=== PATIENT | male | born 1990 | race Caucasian/White ===

== ENCOUNTER 2018-11-23 02:54 | Emergency (ER) | payer SELFPAY ==
[2018-11-23] MEDS ORDERED: Diphtheria,Pertussis(Acell),Tetanus Vaccine 0.5 ML Syringe IM ONE (02:56)
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
[2018-11-23] MEDS ORDERED: Bacitracin Oint 1 GM U/D Packet TOP ONE (03:10)
[2018-11-23] MEDS ORDERED: Haloperidol Lactate 5 MG/ML SDV IM ONE (03:24)
[2018-11-23] MEDS ORDERED: Sodium Chloride 0.9% 10 ML Syringe FLUSH PRN (03:26)
[2018-11-23] MEDS ORDERED: LORazepam 2 MG/ML SDV IVPUSH ONE (03:26)
[2018-11-23] MEDS ORDERED: Sodium Chloride 0.9% 2.5 ML Syringe FLUSH PRN (03:26)
[2018-11-23] MEDS ORDERED: Sodium Chloride 0.9% 1,000 ML IV ONE (03:27)
[2018-11-23] MEDS ORDERED: LORazepam 2 MG/ML SDV ONE ×2 (03:29→03:38)
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
== END 2018-11-23 04:03 ==
LOC: MW.ED 02:54
DX: S01.01XA Laceration without foreign body of scalp, initial encounter (principal); S01.511A Laceration without foreign body of lip, initial encounter; S30.810A Abrasion of lower back and pelvis, initial encounter; F10.129 Alcohol abuse with intoxication, unspecified; Z23 Encounter for immunization; W01.198A Fall on same level from slipping, tripping and stumbling with subsequent striking against other object, initial encounter
CPT/HCPCS: 12001; 70450; 82962; 90471; 90715; 96374; 99284; J2060; J7040

== ENCOUNTER 2020-03-18 12:26 | Emergency (ER) | payer SELFPAY ==
[2020-03-18] MEDS ORDERED: Sodium Chloride 0.9% 2.5 ML Syringe FLUSH PRN ×2 (13:08→13:13)
[2020-03-18] MEDS ORDERED: Sodium Chloride 0.9% 10 ML Syringe FLUSH PRN ×2 (13:08→13:13)
--- NOTE | 2020-03-18 13:08 | EDM.PDOC ---
ED HPI GENERAL MEDICAL PROBLEM - General Chief Complaint: Abdominal Pain Stated Complaint: ABDOMINAL PAIN Time Seen by Provider: 03/18/20 13:07 Source of Information: Reports: Patient History Limitations: Reports: No Limitations - History of Present Illness INITIAL COMMENTS - FREE TEXT/NARRATIVE: 29-year-old male presents with lower abdominal pain since last night. Pain is sharp, moderate, localized to the lower abdomen, constant, no alleviating or exacerbating factors. Associated with decreased appetite, subjective fevers, chills, nausea, vomiting, diarrhea, melanotic stool. He denies testicular pain or back pain. Last time he ate was at 8 PM. ROS: A 10-point review of systems, other than pertinent positives and negatives as stated per HPI, is otherwise negative Past medical history: No additional pertinent history Past Surgical history: No additional pertinent history Social history: No additional pertinent history Family history: No additional pertinent history PHYSICAL EXAM General: AOx4, GCS = 15, moderate distress HEENT: dry mucous membrane Neck: supple, no meningismus, no Kernig or Brudzinski Cardiac: S1S2 RRR Respiratory: CTAB, no crackles or rales, no wheezing Abdomen: Soft, tenderness to right lower quadrant, left lower quadrant, suprapubic, periumbilical. No rebound or guarding, nondistended, no pulsatile mass. Back: nontender Musculoskeletal: NVI distally, no deformity Neuro: No focal deficits, CN 2 - 12 WNL. abdomen Pain Score (Numeric/FACES): 8 - Related Data Allergies Allergy/AdvReac Type Severity Reaction Status Date / Time No Known Allergies Allergy Verified 03/18/20 14:08 Home Meds: Home Meds Dicyclomine [Bentyl] 10 mg PO QIDACANDBED #12 cap 03/18/20 [Rx] Past Medical History - Past Health History Medical/Surgical History: Denies Medical/Surgical History Social & Family History - Family History Family Medical History: Noncontributory ED ROS GENERAL - Review of Systems Review Of Systems: See Below (see dictation) ED EXAM, GI/ABD - Physical Exam Exam: See Below (see dictation) Course - Vital Signs Last Recorded V/S: Last Vital Signs Temp 97.5 F 03/18/20 13:14 Pulse 105 H 03/18/20 17:25 Resp 17 03/18/20 17:25 BP 171/107 H 03/18/20 17:25 Pulse Ox 94 L 03/18/20 17:25 - Orders/Labs/Meds Orders: Active Orders 24 hr Category Date Time Status Sodium Chloride 0.9% [Saline Flush] Med 03/18/20 13:08 Active 10 ml FLUSH ASDIRECTED PRN Sodium Chloride 0.9% [Saline Flush] Med 03/18/20 13:13 Active 10 ml FLUSH ASDIRECTED PRN Sodium Chloride 0.9% [Saline Flush] Med 03/18/20 13:08 Active 2.5 ml FLUSH ASDIRECTED PRN Sodium Chloride 0.9% [Saline Flush] Med 03/18/20 13:13 Active 2.5 ml FLUSH ASDIRECTED PRN Saline Lock Insert [OM.PC] Stat Oth 03/18/20 13:08 Ordered Saline Lock Insert [OM.PC] Stat Oth 03/18/20 13:13 Ordered Medication Orders Sodium Chloride (Saline Flush) 10 ml FLUSH ASDIRECTED PRN PRN Reason: Keep Vein Open Last Admin: 03/18/20 13:41 Dose: 10 ml Documented by: SALVADOR Sodium Chloride (Saline Flush) 2.5 ml FLUSH ASDIRECTED PRN PRN Reason: Keep Vein Open Last Admin: 03/18/20 13:42 Dose: 2.5 ml Documented by: JOSEPHG Sodium Chloride (Saline Flush) 10 ml FLUSH ASDIRECTED PRN PRN Reason: Keep Vein Open Last Admin: 03/18/20 13:42 Dose: 10 ml Documented by: ARANANG Sodium Chloride (Saline Flush) 2.5 ml FLUSH ASDIRECTED PRN PRN Reason: Keep Vein Open Labs: Laboratory Tests 03/18/20 03/18/20 03/18/20 Range/Units 13:30 13:30 13:30 WBC 10.60 (4.0-11.0) K/uL RBC 5.38 (4.50-5.90) M/uL Hgb 16.9 (13.0-17.0) g/dL Hct 50.3 H (38.0-50.0) % MCV 93.5 (80.0-98.0) fL MCH 31.4 (27.0-32.0) pg MCHC 33.6 (31.0-37.0) g/dL RDW Std Deviation 46.5 (28.0-62.0) fl RDW Coeff of Julissa 14 (11.0-15.0) % Plt Count 154 (150-400) K/uL MPV 13.00 H (7.40-12.00) fL Neut % (Auto) 67.3 (48.0-80.0) % Lymph % (Auto) 19.7 (16.0-40.0) % [place] % (Auto) 10.4 (0.0-15.0) % Eos % (Auto) 2.2 (0.0-7.0) % Baso % (Auto) 0.4 (0.0-1.5) % Neut # (Auto) 7.1 H (1.4-5.7) K/uL Lymph # (Auto) 2.1 (0.6-2.4) K/uL [place] # (Auto) 1.1 H (0.0-0.8) K/uL Eos # (Auto) 0.2 (0.0-0.7) K/uL Baso # (Auto) 0.0 (0.0-0.1) K/uL Nucleated RBC % 0.0 /100WBC Nucleated RBCs # 0 K/uL INR 1.09 Lactate (0.20-2.00) mmol/L Sodium 141 (136-148) mmol/L Potassium 3.5 (3.5-5.1) mmol/L Chloride 104 (98-107) mmol/L Carbon Dioxide 25.1 (21.0-32.0) mmol/L BUN 9 (7.0-18.0) mg/dL Creatinine 0.8 (0.8-1.3) mg/dL Est Cr Clr Drug Dosing 151.20 mL/min Estimated GFR (MDRD) > 60.0 ml/min Glucose 108 H (74-106) mg/dL Calcium 8.8 (8.5-10.1) mg/dL Total Bilirubin 0.8 (0.2-1.0) mg/dL AST 36 (15-37) IU/L ALT 98 H (14-63) IU/L Alkaline Phosphatase 78 (46-116) U/L Total Protein 7.6 (6.4-8.2) g/dL Albumin 4.2 (3.4-5.0) g/dL Globulin 3.4 (2.6-4.0) g/dL Albumin/Globulin Ratio 1.2 (0.9-1.6) Lipase 132 (73-393) U/L Urine Color Urine Appearance Urine pH (5.0-8.0) Ur Specific Woodman (1.001-1.035) Urine Protein (NEGATIVE) mg/dL Urine Glucose (UA) (NEGATIVE) mg/dL Urine Ketones (NEGATIVE) mg/dL Urine Occult Blood (NEGATIVE) Urine Nitrite (NEGATIVE) Urine Bilirubin (NEGATIVE) Urine Ictotest Urine Urobilinogen (<2.0) EU/dL Ur Leukocyte Esterase (NEGATIVE) Urine RBC (0-2/HPF) Urine WBC (0-5/HPF) Ur Epithelial Cells (NONE-FEW) Urine Bacteria (NEGATIVE) 03/18/20 03/18/20 Range/Units 13:30 13:35 WBC (4.0-11.0) K/uL RBC (4.50-5.90) M/uL Hgb (13.0-17.0) g/dL Hct (38.0-50.0) % MCV (80.0-98.0) fL MCH (27.0-32.0) pg MCHC (31.0-37.0) g/dL RDW Std Deviation (28.0-62.0) fl RDW Coeff of Julissa (11.0-15.0) % Plt Count (150-400) K/uL MPV (7.40-12.00) fL Neut % (Auto) (48.0-80.0) % Lymph % (Auto) (16.0-40.0) % [place] % (Auto) (0.0-15.0) % Eos % (Auto) (0.0-7.0) % Baso % (Auto) (0.0-1.5) % Neut # (Auto) (1.4-5.7) K/uL Lymph # (Auto) (0.6-2.4) K/uL [place] # (Auto) (0.0-0.8) K/uL Eos # (Auto) (0.0-0.7) K/uL Baso # (Auto) (0.0-0.1) K/uL Nucleated RBC % /100WBC Nucleated RBCs # K/uL INR Lactate 1.0 (0.20-2.00) mmol/L Sodium (136-148) mmol/L Potassium (3.5-5.1) mmol/L Chloride (98-107) mmol/L Carbon Dioxide (21.0-32.0) mmol/L BUN (7.0-18.0) mg/dL Creatinine (0.8-1.3) mg/dL Est Cr Clr Drug Dosing mL/min Estimated GFR (MDRD) ml/min Glucose (74-106) mg/dL Calcium (8.5-10.1) mg/dL Total Bilirubin (0.2-1.0) mg/dL AST (15-37) IU/L ALT (14-63) IU/L Alkaline Phosphatase (46-116) U/L Total Protein (6.4-8.2) g/dL Albumin (3.4-5.0) g/dL Globulin (2.6-4.0) g/dL Albumin/Globulin Ratio (0.9-1.6) Lipase (73-393) U/L Urine Color YELLOW Urine Appearance SLT CLOUDY Urine pH 6.0 (5.0-8.0) Ur Specific [place]man >= 1.030 (1.001-1.035) Urine Protein TRACE H (NEGATIVE) mg/dL Urine Glucose (UA) NEGATIVE (NEGATIVE) mg/dL Urine Ketones 15 H (NEGATIVE) mg/dL Urine Occult Blood MODERATE H (NEGATIVE) Urine Nitrite NEGATIVE (NEGATIVE) Urine Bilirubin SMALL H (NEGATIVE) Urine Ictotest NEGATIVE Urine Urobilinogen 1.0 (<2.0) EU/dL Ur Leukocyte Esterase TRACE H (NEGATIVE) Urine RBC 1-2 (0-2/HPF) Urine WBC 2-3 (0-5/HPF) Ur Epithelial Cells RARE (NONE-FEW) Urine Bacteria RARE (NEGATIVE) Meds: Medications Generic Name Dose Route Start Last Admin Trade Name Freq PRN Reason Stop Dose Admin Sodium Chloride 10 ml 03/18/20 13:08 03/18/20 13:41 Saline Flush FLUSH 10 ml ASDIRECTED PRN Administration Keep Vein Open Sodium Chloride 2.5 ml 03/18/20 13:08 03/18/20 13:42 Saline Flush FLUSH 2.5 ml ASDIRECTED PRN Administration Keep Vein Open Sodium Chloride 10 ml 03/18/20 13:13 03/18/20 13:42 Saline Flush FLUSH 10 ml ASDIRECTED PRN Administration Keep Vein Open Sodium Chloride 2.5 ml 03/18/20 13:13 Saline Flush FLUSH ASDIRECTED PRN Keep Vein Open Discontinued Medications Generic Name Dose Route Start Last Admin Trade Name Mario PRN Reason Stop Dose Admin Dicyclomine HCl 10 mg 03/18/20 16:24 03/18/20 16:36 Bentyl PO 03/18/20 16:25 10 mg ONETIME ONE Administration Hydromorphone HCl 1 mg 03/18/20 16:24 03/18/20 16:34 Dilaudid IVPUSH 03/18/20 16:25 1 mg ONETIME ONE Administration Lactated Ringer's 1,000 mls @ 999 mls/hr 03/18/20 13:13 03/18/20 13:37 Ringers, Lactated IV 03/18/20 14:13 999 mls/hr .BOLUS ONE Administration Iopamidol 100 ml 03/18/20 14:45 03/18/20 14:46 Isovue Multipack-370 (76%) IVPUSH 03/18/20 14:46 100 ml ONETIME ONE Administration Labetalol HCl 10 mg 03/18/20 16:41 03/18/20 17:25 Normodyne IVPUSH 03/18/20 16:42 10 mg ONETIME ONE Administration Protocol Morphine Sulfate 4 mg 03/18/20 13:13 03/18/20 13:39 Morphine IVPUSH 03/18/20 13:14 4 mg ONETIME ONE Administration Ondansetron HCl 4 mg 03/18/20 13:13 03/18/20 13:37 Zofran IVPUSH 03/18/20 13:14 4 mg ONETIME ONE Administration - Re-Assessments/Exams Free Text/Narrative Re-Assessment/Exam: 03/18/20 18:15 After IV pain medication in the ER, the patient improved and is currently stable for discharge. I performed a repeat exam and did not appreciate new abnormal findings. Patient exhibits normal vital signs and has a normal gait on road test. I advised the patient to return to the ER for reevaluation if symptoms worsened, including fever, worsening pain, or any other worrisome symptoms. I instructed the patient to follow up with their PCP within 2-3 days. MEDICAL DECISION MAKING: I reviewed the patients past medical records, lab and radiographic findings. I discussed the case with the patient. My differential diagnosis included: Appendicitis, diverticulitis, UTI, cystitis. CT did not demonstrate any surgical abnormality, pain is improved after IV pain medication, his blood pressure and tachycardia resolved after IV fluids and medication. I reexamined his abdomen, which was soft and nontender with no rebound or guarding, I do not suspect need for admission for serial exams, I suspect he is stable for outpatient follow-up with surgery clinic for scoping. Departure - Departure Time of Disposition: 18:17 Disposition: Home, Self-Care 01 Condition: Good Clinical Impression: Abdominal pain - Discharge Information *PRESCRIPTION DRUG MONITORING PROGRAM REVIEWED*: Not Applicable *COPY OF PRESCRIPTION DRUG MONITORING REPORT IN PATIENT STACY: Not Applicable Prescriptions: Dicyclomine [Bentyl] 10 mg PO QIDACANDBED #12 cap Instructions: Abdominal Pain, Adult, [id number] Referrals: Jenna Almendraez MD [Physician] - 3 Days Forms: ED Department Discharge, ED Return to Work/School Form Additional Instructions: The need for follow-up, as well as the timing and circumstances, are variable depending upon the specifics of your emergency department visit. If you don't have a primary care physician on staff, we will provide you with a referral. We always advise you to contact your personal physician following an emergency department visit to inform them of the circumstance of the visit and for follow-up with them and/or the need for any referrals to a consulting specialist. The emergency department will also refer you to a specialist when appropriate. This referral assures that you have the opportunity for follow-up care with a specialist. All of these measure are taken in an effort to provide you with optimal care, which includes your follow-up. Under all circumstances we always encourage you to contact your private physician who remains a resource for coordinating your care. When calling for follow-up care, please make the office aware that this follow-up is from your recent emergency room visit. If for any reason you are refused follow-up, please contact the [facility] Emergency Department at and asked to speak to the emergency department charge nurse. If you do not have a primary care doctor, please follow up with the clinics below within 3-5 days. [facility] - Primary Care [address] [place] [id number] [facility] - General Surgery Professional Building [address] [place] [address], [address] [place] [address] Sepsis Event Note (ED) - Focused Exam Vital Signs: Vital Signs Temp Pulse Resp BP Pulse Ox 03/18/20 17:25 105 H 17 171/107 H 94 L 03/18/20 16:30 120 H 17 167/118 H 96 03/18/20 13:45 114 H 17 164/104 H 95 03/18/20 13:14 97.5 F 107 H 20 170/108 H 97 - My Orders Last 24 Hours: My Active Orders 03/18/20 13:08 Sodium Chloride 0.9% [Saline Flush] 10 ml FLUSH ASDIRECTED PRN Sodium Chloride 0.9% [Saline Flush] 2.5 ml FLUSH ASDIRECTED PRN Saline Lock Insert [OM.PC] Stat 03/18/20 13:13 Sodium Chloride 0.9% [Saline Flush] 10 ml FLUSH ASDIRECTED PRN Sodium Chloride 0.9% [Saline Flush] 2.5 ml FLUSH ASDIRECTED PRN Saline Lock Insert [OM.PC] Stat - Assessment/Plan Last 24 Hours: My Active Orders 03/18/20 13:08 Sodium Chloride 0.9% [Saline Flush] 10 ml FLUSH ASDIRECTED PRN Sodium Chloride 0.9% [Saline Flush] 2.5 ml FLUSH ASDIRECTED PRN Saline Lock Insert [OM.PC] Stat 03/18/20 13:13 Sodium Chloride 0.9% [Saline Flush] 10 ml FLUSH ASDIRECTED PRN Sodium Chloride 0.9% [Saline Flush] 2.5 ml FLUSH ASDIRECTED PRN Saline Lock Insert [OM.PC] Stat
[2020-03-18] MEDS ORDERED: Morphine 4 MG/ML Syringe IVPUSH ONE (13:13)
[2020-03-18] MEDS ORDERED: Lactated Ringers 1,000 ML IV ONE (13:13)
[2020-03-18] MEDS ORDERED: Ondansetron 4 MG/2 ML SDV IVPUSH ONE (13:13)
[2020-03-18 14:01] LABS: CARBON DIOXIDE,CO2 25.1 mmol/L (21.0-32.0); CHLORIDE,CL 104 mmol/L (98-107); GLUCOSE RANDOM 108 mg/dL (74-106); LIPASE 132 U/L (73-393); POTASSIUM,K 3.5 mmol/L (3.5-5.1); SODIUM,NA 141 mmol/L (136-148)
[2020-03-18 14:06] LABS: BLOOD UREA NITROGEN,BUN 9 mg/dL (7.0-18.0)
[2020-03-18] MEDS ORDERED: Iopamidol 755 MG/ML 500 ML Multipack Bottle IVPUSH ONE (14:45)
--- NOTE | 2020-03-18 15:04 | CT ---
CT abdomen and pelvis Technique: Multiple axial sections were obtained from above the dome of the diaphragm inferiorly through the pubic symphysis. Intravenous contrast was utilized. No oral contrast has been given. Comparison: No prior abdominal imaging is available. Findings: Visualized lung bases are clear. Liver shows no focal parenchymal abnormality. Spleen appears within normal limits. Gallbladder contains no calcified gallstones. Adrenal glands show no nodule. Kidneys show symmetric contrast enhancement without hydronephrosis or mass. Pancreas appears within normal limits. Aorta shows no aneurysm. No retroperitoneal adenopathy or mesenteric abnormalities are seen. No pelvic mass or adenopathy is seen. No free fluid or inflammatory change is identified. Appendix is visualized and appears normal. Bone window settings were reviewed which shows an old healed right lower rib fracture. No acute osseous finding is appreciated. Impression: 1. Nothing acute is appreciated on CT study of the abdomen and pelvis. Diagnostic code #2 This report was dictated in MDT
[2020-03-18] MEDS ORDERED: Dicyclomine 10 MG Cap PO ONE (16:24)
[2020-03-18] MEDS ORDERED: HYDROmorphone 2 MG/ML Syringe IVPUSH ONE (16:24)
[2020-03-18] MEDS ORDERED: Labetalol 100 MG/20 ML MDV IVPUSH ONE (16:41)
== END 2020-03-18 18:46 | disposition home or self-care (01) ==
LOC: MW.ED 12:26
DX: R10.31 Right lower quadrant pain (principal); R10.32 Left lower quadrant pain; R10.33 Periumbilical pain
CPT/HCPCS: 74177; 80053; 81001; 83605; 83690; 85025; 85610; 96361; 96374; 96375; 99284; A9270; J1170; J2270; J2405; J3490; J7120; Q9967; 99283

== ENCOUNTER 2020-11-01 22:25 | Emergency (ER) | payer MEDICAID ==
--- NOTE | 2020-11-01 22:49 | EDM.PDOC ---
ED HPI GENERAL MEDICAL PROBLEM - General Chief Complaint: Behavioral/Psych Stated Complaint: DEPRESSION NOT SLEEPING Time Seen by Provider: 11/01/20 22:29 - History of Present Illness INITIAL COMMENTS - FREE TEXT/NARRATIVE: History of present illness: [] The patient is depressed. He says he is depressed and anxious and sometimes he thinks he is fairly close to trying to kill himself. 7 years ago he tried to hang himself and was unsuccessful. He did put a noose around his neck but it did not kill him. He has had no effort since. He occasionally has hallucinations. He says he has been depressed all his life. He recently got out of a relationship but he said it did not get off to have very good start and never became a very close relationship. His only contact with supportive person is his mother by phone who does not live here. He says his mother is supportive and not judgmental. He does get some consolation when he talks to her. He does not have a plan to kill himself but says if he cannot sleep he feels like he might want to . He thinks it is possible he might try again. He wants to get help sleeping and then he agrees to go to [place] and be seen and evaluated for intake and possible referral for voluntary inpatient, group, or individual counseling. He does not have any physical complaint but worries about his health because he says he drinks too much. Review of systems: As per history of present illness and below otherwise all systems reviewed and negative. Past medical history: As per history of present illness and as reviewed below otherwise noncontributory. Surgical history: As per history of present illness and as reviewed below otherwise noncontributory. Social history: No reported history of drug or alcohol abuse. Family history: As per history of present illness and as reviewed below otherwise noncontributory. Physical exam: Constitutional - well developed, well-nourished and in no acute distress HEENT - normocephalic, no evidence of trauma - external nose and mouth normal - no mass in neck and no JVD - mucosae moist EYES - full EOM, PERRL, no icterus - no evidence of inflammation, injection, or drainage Respiratory - no respiratory distress, equal bilateral expansion, lungs clear to auscultation and no abnormal lung sounds Cardiovascular - Regular Rhythm with S1 and S2 appreciated and no murmur, gallop or rub. GI - abdomen soft without distension or organomegaly - normal bowel sounds - no guard or rebound Musculoskeletal no gross deformity of long bones or joints - no tenderness, swelling or edema Neurologic - Alert and oriented times four - CN II-XII grossly intact - motor sensory and coordination symmetrically normal Psychiatric -depressed mood and normal affect with normal thought content. No plan to kill himself. No concern that he is going to try to kill himself today. He states that he poses no threat to others. Hematologic - No petechiae or purpura - mucosa appropriate color and sclera not pale - normal nail bed color and refill Integument - no rash or evidence of trauma - normal turgor Diagnostics: [] Therapeutics: [] Impression: [] Plan: [] Definitive disposition and diagnosis as appropriate pending reevaluation and review of above. - Related Data Allergies Allergy/AdvReac Type Severity Reaction Status Date / Time No Known Allergies Allergy Verified 11/01/20 22:33 Home Meds: Home Meds Dicyclomine [Bentyl] 10 mg PO QIDACANDBED #12 cap 03/18/20 [Rx] Past Medical History - Past Health History Medical/Surgical History: Denies Medical/Surgical History HEENT History: Reports: None Cardiovascular History: Reports: None Respiratory History: Reports: None Gastrointestinal History: Reports: None, Other (See Below) Other Gastrointestinal History: diverticulitis Genitourinary History: Reports: None Musculoskeletal History: Reports: None Neurological History: Reports: None Psychiatric History: Reports: Anxiety, Depression Endocrine/Metabolic History: Reports: None Hematologic History: Reports: None Immunologic History: Reports: None Oncologic (Cancer) History: Reports: None Dermatologic History: Reports: None - Infectious Disease History Infectious Disease History: Reports: None - Past Surgical History Head Surgeries/Procedures: Reports: None HEENT Surgical History: Reports: None GI Surgical History: Reports: Colonoscopy Social & Family History - Family History Family Medical History: No Pertinent Family History - Caffeine Use Caffeine Use: Reports: Energy Drinks, Soda - Recreational Drug Use Recreational Drug Use: Yes Drug Use in Last 12 Months: Yes Recreational Drug Type: Reports: Amphetamines (Speed) ED ROS GENERAL - Review of Systems Review Of Systems: Comprehensive ROS is negative, except as noted in HPI. ED EXAM, GENERAL - Physical Exam Exam: See Below Free Text/Narrative:: My physical exam is in the HPI. Course - Vital Signs Text/Narrative:: Patient said he decided to go to [place] on his own. He was in a kill himself. He walked out without getting his lab results. He was steady on his feet and understood the risk he is taking and had the capacity to understand that we wanted him to stay and get his lab results and have us discuss more formal referral. Last Recorded V/S: Last Vital Signs Temp 36.4 C 11/01/20 22:34 Pulse 109 H 11/01/20 22:34 Resp 18 11/01/20 22:34 BP 121/70 11/01/20 22:34 Pulse Ox 96 11/01/20 22:34 - Orders/Labs/Meds Orders: Active Orders 24 hr Category Date Time Status COMPREHENSIVE METABOLIC PN,CMP [CHEM] Stat Lab 11/01/20 23:03 Received DRUG SCREEN, URINE [URCHEM] Stat Lab 11/01/20 22:46 Ordered ETHANOL BLOOD MEDICAL [CHEM] Stat Lab 11/01/20 23:03 Received LIPASE [CHEM] Stat Lab 11/01/20 23:03 Received MAGNESIUM [CHEM] Stat Lab 11/01/20 23:03 Received Labs: Laboratory Tests 11/01/20 Range/Units 23:03 WBC 11.06 H (4.0-11.0) K/uL RBC 5.89 (4.50-5.90) M/uL Hgb 18.4 H (13.0-17.0) g/dL Hct 53.8 H (38.0-50.0) % MCV 91.3 (80.0-98.0) fL MCH 31.2 (27.0-32.0) pg MCHC 34.2 (31.0-37.0) g/dL RDW Std Deviation 46.7 (28.0-62.0) fl RDW Coeff of Julissa 14 (11.0-15.0) % Plt Count 181 (150-400) K/uL MPV 12.90 H (7.40-12.00) fL Neut % (Auto) 54.8 (48.0-80.0) % Lymph % (Auto) 35.1 (16.0-40.0) % Day % (Auto) 4.9 (0.0-15.0) % Eos % (Auto) 4.5 (0.0-7.0) % Baso % (Auto) 0.7 (0.0-1.5) % Neut # (Auto) 6.1 H (1.4-5.7) K/uL Lymph # (Auto) 3.9 H (0.6-2.4) K/uL Day # (Auto) 0.5 (0.0-0.8) K/uL Eos # (Auto) 0.5 (0.0-0.7) K/uL Baso # (Auto) 0.1 (0.0-0.1) K/uL Nucleated RBC % 0.0 /100WBC Nucleated RBCs # 0 K/uL Departure - Departure Time of Disposition: 23:24 Disposition: Eloped 07 Condition: Good Clinical Impression: Alcohol abuse - Discharge Information Referrals: PCP,None [Primary Care Provider] - Forms: ED Department Discharge Additional Instructions: [facility] Address: [address] [place] [address] Hours: walk in 9 AM M-F The following information is given to patients seen in the emergency department who are being discharged to home. This information is to outline your options for follow-up care. We provide all patients seen in our emergency department with a follow-up referral. The need for follow-up, as well as the timing and circumstances, are variable depending upon the specifics of your emergency department visit. If you don't have a primary care physician on staff, we will provide you with a referral. We always advise you to contact your personal physician following an emergency department visit to inform them of the circumstance of the visit and for follow-up with them and/or the need for any referrals to a consulting specialist. The emergency department will also refer you to a specialist when appropriate. This referral assures that you have the opportunity for follow-up care with a specialist. All of these measure are taken in an effort to provide you with optimal care, which includes your follow-up. Under all circumstances we always encourage you to contact your private physician who remains a resource for coordinating your care. When calling for follow-up care, please make the office aware that this follow-up is from your recent emergency room visit. If for any reason you are refused follow-up, please contact the [facility] Emergency Department at and asked to speak to the emergency department charge nurse. Sepsis Event Note (ED) - Evaluation Sepsis Screening Result: No Definite Risk - Focused Exam Vital Signs: Vital Signs Temp Pulse Resp BP Pulse Ox 11/01/20 22:34 36.4 C 109 H 18 121/70 96 - My Orders Last 24 Hours: My Active Orders 11/01/20 22:46 DRUG SCREEN, URINE [URCHEM] Stat 11/01/20 23:03 COMPREHENSIVE METABOLIC PN,CMP [CHEM] Stat ETHANOL BLOOD MEDICAL [CHEM] Stat LIPASE [CHEM] Stat MAGNESIUM [CHEM] Stat - Assessment/Plan Last 24 Hours: My Active Orders 11/01/20 22:46 DRUG SCREEN, URINE [URCHEM] Stat 11/01/20 23:03 COMPREHENSIVE METABOLIC PN,CMP [CHEM] Stat ETHANOL BLOOD MEDICAL [CHEM] Stat LIPASE [CHEM] Stat MAGNESIUM [CHEM] Stat
[2020-11-01 23:29] LABS: BLOOD UREA NITROGEN,BUN 8 mg/dL (7.0-18.0); CARBON DIOXIDE,CO2 20.7 mmol/L (21.0-32.0); CHLORIDE,CL 104 mmol/L (98-107); GLUCOSE RANDOM 127 mg/dL (74-106); LIPASE 182 U/L (73-393); POTASSIUM,K 3.7 mmol/L (3.5-5.1); SODIUM,NA 142 mmol/L (136-148)
== END 2020-11-01 23:24 | disposition left against medical advice (07) ==
LOC: MW.ED 22:25
DX: F10.10 Alcohol abuse, uncomplicated (principal); Y90.4 Blood alcohol level of 80-99 mg/100 ml
CPT/HCPCS: 36415; 80053; 80307; 83690; 83735; 85025; 99284

== ENCOUNTER 2021-01-13 18:32 | Emergency (ER) | payer MEDICAID ==
[2021-01-13] MEDS ORDERED: Ondansetron 4 MG/2 ML SDV IVPUSH ONE (19:00)
[2021-01-13] MEDS ORDERED: Sodium Chloride 0.9% 1,000 ML IV ONE (19:00)
[2021-01-13] MEDS ORDERED: Ketorolac 30 MG/ML SDV IVPUSH ONE (19:07)
--- NOTE | 2021-01-13 19:33 | EDM.PDOC ---
ED HPI GENERAL MEDICAL PROBLEM - General Chief Complaint: Gastrointestinal Problem Stated Complaint: LIGHTHEADED, ABDOMINAL PAIN Time Seen by Provider: 01/13/21 19:01 Source of Information: Reports: Patient History Limitations: Reports: No Limitations - History of Present Illness INITIAL COMMENTS - FREE TEXT/NARRATIVE: HISTORY AND PHYSICAL: History of present illness: Patient is a 30-year-old male who presents to the emergency room with complaints of nausea, vomiting, diarrhea this started this afternoon when he arrived at work. He states he also feels somewhat lightheaded and has mild right upper quadrant abdominal pain. Patient denies any fever, chills, headache, change in vision, syncope or near syncope. Denies any chest pain, back pain, shortness of breath or cough. Denies any constipation or dysuria. Has not noted any blood in urine or stool. Patient has been eating and drinking appropriately. He states he does smoke marijuana daily. Denies any alcohol or other drug abuse Review of systems: As per history of present illness and below otherwise all systems reviewed and negative. Past medical history: As per history of present illness and as reviewed below otherwise noncontributory. Surgical history: As per history of present illness and as reviewed below otherwise noncontributory. Social history: See social history for further information Family history: As per history of present illness and as reviewed below otherwise noncontributory. Physical exam: General: Well developed and well nourished 30-year-old male. Agitated and fidgety. Alert and orientated x 3. Nontoxic in appearance and in no acute distress. Vital signs are stable and have been reviewed by me. Nursing notes were reviewed. HEENT: Atraumatic, normocephalic, pupils equal and reactive bilaterally, negative for conjunctival pallor or scleral icterus, mucous membranes moist, TMs normal bilaterally, throat clear, neck supple, nontender, trachea midline. No drooling or trismus noted. No meningeal signs. No hot potato voice noted. Lungs: Clear to auscultation bilaterally. No wheezes, rales, or rhonchi. Chest nontender. Normal work of breathing, no accessory muscles used. Heart: S1S2, regular rate and rhythm without overt murmur, gallops, or rubs. No JVD. No peripheral edema Abdomen: Soft, nondistended, nontender. Normoactive bowel sounds. Negative for masses or costovertebral tenderness. Skin: Intact, warm, dry. No lesions or rashes noted. Hematologic: No petechiae or purpra. Mucosa appropriate color and normal nail bed color and refill. Extremities: Atraumatic, moves all extremities per self without difficulty or deficits, negative for cords or calf pain. Neurovascular unremarkable. Neuro: Awake, alert, oriented. Cranial nerves II through XII unremarkable. Cerebellum unremarkable. Motor and sensory unremarkable throughout. Exam nonfocal. Psychiatric: Mood and affect are appropriate. Normal thought process. Answering questions appropriately. Notes: *This patient was seen and evaluated during the 2019 SARS-CoV-2 novel coronavirus pandemic period. Community viral transmission is ongoing at time of this encounter and the emergency department is operating under pandemic response procedures. Patient is a 30-year-old male who presents to the emergency room with complaints of nausea, vomiting, diarrhea over the past several hours. He states he had to leave work early because he became lightheaded and developed some mild right upper quadrant pain. Patient is very fidgety and appears anxious. When we discussed doing diagnostics he was hesitant asking me "what are you all testing for". Lab work is unremarkable. Patient does have multiple drugs in his system, I am not comfortable giving him any narcotics while here for his abdominal pain. I did offer him Tylenol. We discussed that he had some hematuria in his urine, he would like to be discharged rather than further imaging to assess for kidney stone. He states that he has not had any difficulty with voiding and would like to go. I have talked with the patient about today's findings, in addition to providing specific details for plan of care. Reassessment at the time of disposition demonstrates that the patient is in no acute distress. The patient is stable for discharge, counseling was provided and we discussed in great detail signs and symptoms that would prompt them to return to the Emergency Department. Medication, follow up and supportive care measures were reviewed and discussed. Voices understanding and is agreeable to plan of care. Denies any further questions or concerns at this time. Diagnostics: CBC, CMP, UA, lipase Therapeutics: IV fluid, Zofran, Toradol Prescription: Zofran Impression: Gastroenteritis Polysubstance abuse Plan: 1. You were evaluated today on an emergent basis. Your blood work was normal. Take the Zofran as needed for nausea. Trigg diet, advance as tolerated. 2. You can alternate Tylenol and ibuprofen as needed for pain and fever management. 3. We encourage you to follow up with your primary care provider and/or recommended specialist in the next few days for re-evaluation and further care/management. 4. If your symptoms should worsen, new symptoms develop or any of the signs and symptoms we discussed should arise please return to the emergency room or call 911 (if needed). Definitive disposition and diagnosis as appropriate pending reevaluation and review of above. RUQ Pain Score (Numeric/FACES): 8 - Related Data Allergies Allergy/AdvReac Type Severity Reaction Status Date / Time No Known Allergies Allergy Verified 01/13/21 19:03 Home Meds: Home Meds Ondansetron [Zofran ODT] 4 mg PO Q6H PRN #8 tab.dis 01/13/21 [Rx] Past Medical History - Past Health History Medical/Surgical History: Denies Medical/Surgical History HEENT History: Reports: None Cardiovascular History: Reports: None Respiratory History: Reports: None Gastrointestinal History: Reports: None, Other (See Below) Other Gastrointestinal History: diverticulitis Genitourinary History: Reports: None Musculoskeletal History: Reports: None Neurological History: Reports: None Psychiatric History: Reports: Anxiety, Depression Endocrine/Metabolic History: Reports: None Hematologic History: Reports: None Immunologic History: Reports: None Oncologic (Cancer) History: Reports: None Dermatologic History: Reports: None - Infectious Disease History Infectious Disease History: Reports: None - Past Surgical History Head Surgeries/Procedures: Reports: None HEENT Surgical History: Reports: None GI Surgical History: Reports: Colonoscopy Social & Family History - Family History Family Medical History: No Pertinent Family History - Caffeine Use Caffeine Use: Reports: Energy Drinks, Soda - Recreational Drug Use Recreational Drug Use: Yes Recreational Drug Type: Reports: Marijuana/Hashish Recreational Drug Use Frequency: Daily ED ROS GENERAL - Review of Systems Review Of Systems: Comprehensive ROS is negative, except as noted in HPI. ED EXAM, GI/ABD - Physical Exam Exam: See Below (See dictation) Course - Vital Signs Last Recorded V/S: Last Vital Signs Temp 98.7 F 01/13/21 19:01 Pulse 108 H 01/13/21 19:01 Resp 16 01/13/21 19:01 BP 143/93 H 01/13/21 19:01 Pulse Ox 96 01/13/21 19:01 Orthostatic Blood Pressure [ 138/92 Standing] Orthostatic Blood Pressure [ 144/103 Sitting] Orthostatic Blood Pressure [ 140/101 Supine] - Orders/Labs/Meds Orders: Active Orders 24 hr Category Date Time Status EKG Documentation Completion [RC] STAT Care 01/13/21 19:33 Active Orthostatic Vital Signs [RC] ASDIRECTED Care 01/13/21 19:33 Active Labs: Laboratory Tests 01/13/21 01/13/21 01/13/21 Range/Units 19:25 19:25 20:50 WBC 10.27 (4.0-11.0) K/uL RBC 5.15 (4.50-5.90) M/uL Hgb 15.6 (13.0-17.0) g/dL Hct 46.1 (38.0-50.0) % MCV 89.5 (80.0-98.0) fL MCH 30.3 (27.0-32.0) pg MCHC 33.8 (31.0-37.0) g/dL RDW Std Deviation 47.3 (28.0-62.0) fl RDW Coeff of Julissa 15 (11.0-15.0) % Plt Count 140 L (150-400) K/uL MPV 13.10 H (7.40-12.00) fL Neut % (Auto) 54.6 (48.0-80.0) % Lymph % (Auto) 29.3 (16.0-40.0) % [place] % (Auto) 9.4 (0.0-15.0) % Eos % (Auto) 6.1 (0.0-7.0) % Baso % (Auto) 0.6 (0.0-1.5) % Neut # (Auto) 5.6 (1.4-5.7) K/uL Lymph # (Auto) 3.0 H (0.6-2.4) K/uL [place] # (Auto) 1.0 H (0.0-0.8) K/uL Eos # (Auto) 0.6 (0.0-0.7) K/uL Baso # (Auto) 0.1 (0.0-0.1) K/uL Nucleated RBC % 0.0 /100WBC Nucleated RBCs # 0 K/uL Sodium 142 (136-148) mmol/L Potassium 3.6 (3.5-5.1) mmol/L Chloride 107 (98-107) mmol/L Carbon Dioxide 23.3 (21.0-32.0) mmol/L BUN 6 L (7.0-18.0) mg/dL Creatinine 1.0 (0.8-1.3) mg/dL Est Cr Clr Drug Dosing 116.40 mL/min Estimated GFR (MDRD) > 60.0 ml/min Glucose 98 (74-106) mg/dL Calcium 7.5 L (8.5-10.1) mg/dL Total Bilirubin 0.5 (0.2-1.0) mg/dL AST 18 (15-37) IU/L ALT 38 (14-63) IU/L Alkaline Phosphatase 74 (46-116) U/L Total Protein 6.7 (6.4-8.2) g/dL Albumin 3.7 (3.4-5.0) g/dL Globulin 3.0 (2.6-4.0) g/dL Albumin/Globulin Ratio 1.2 (0.9-1.6) Lipase 87 (73-393) U/L Urine Color YELLOW Urine Appearance SLT CLOUDY Urine pH 6.0 (5.0-8.0) Ur Specific [place] >= 1.030 (1.001-1.035) Urine Protein NEGATIVE (NEGATIVE) mg/dL Urine Glucose (UA) NEGATIVE (NEGATIVE) mg/dL Urine Ketones NEGATIVE (NEGATIVE) mg/dL Urine Occult Blood MODERATE H (NEGATIVE) Urine Nitrite NEGATIVE (NEGATIVE) Urine Bilirubin NEGATIVE (NEGATIVE) Urine Urobilinogen 1.0 (<2.0) EU/dL Ur Leukocyte Esterase NEGATIVE (NEGATIVE) Urine RBC 2-4 (0-2/HPF) Urine WBC 2-5 (0-5/HPF) Ur Epithelial Cells FEW (NONE-FEW) Urine Bacteria FEW (NEGATIVE) Urine Mucus HEAVY (NONE-MOD) Urinalysis Comment Urine Opiates Screen (NEGATIVE) Ur Oxycodone Screen (NEGATIVE) Urine Methadone Screen (NEGATIVE) Ur Barbiturates Screen (NEGATIVE) Ur Phencyclidine Scrn (NEGATIVE) Ur Amphetamine Screen (NEGATIVE) U Methamphetamines Scrn (NEGATIVE) U Benzodiazepines Scrn (NEGATIVE) U Cocaine Metab Screen (NEGATIVE) U Marijuana (THC) Screen (NEGATIVE) 01/13/21 Range/Units 20:50 WBC (4.0-11.0) K/uL RBC (4.50-5.90) M/uL Hgb (13.0-17.0) g/dL Hct (38.0-50.0) % MCV (80.0-98.0) fL MCH (27.0-32.0) pg MCHC (31.0-37.0) g/dL RDW Std Deviation (28.0-62.0) fl RDW Coeff of Julissa (11.0-15.0) % Plt Count (150-400) K/uL MPV (7.40-12.00) fL Neut % (Auto) (48.0-80.0) % Lymph % (Auto) (16.0-40.0) % [place] % (Auto) (0.0-15.0) % Eos % (Auto) (0.0-7.0) % Baso % (Auto) (0.0-1.5) % Neut # (Auto) (1.4-5.7) K/uL Lymph # (Auto) (0.6-2.4) K/uL [place] # (Auto) (0.0-0.8) K/uL Eos # (Auto) (0.0-0.7) K/uL Baso # (Auto) (0.0-0.1) K/uL Nucleated RBC % /100WBC Nucleated RBCs # K/uL Sodium (136-148) mmol/L Potassium (3.5-5.1) mmol/L Chloride (98-107) mmol/L Carbon Dioxide (21.0-32.0) mmol/L BUN (7.0-18.0) mg/dL Creatinine (0.8-1.3) mg/dL Est Cr Clr Drug Dosing mL/min Estimated GFR (MDRD) ml/min Glucose (74-106) mg/dL Calcium (8.5-10.1) mg/dL Total Bilirubin (0.2-1.0) mg/dL AST (15-37) IU/L ALT (14-63) IU/L Alkaline Phosphatase (46-116) U/L Total Protein (6.4-8.2) g/dL Albumin (3.4-5.0) g/dL Globulin (2.6-4.0) g/dL Albumin/Globulin Ratio (0.9-1.6) Lipase (73-393) U/L Urine Color Urine Appearance Urine pH (5.0-8.0) Ur Specific [place] (1.001-1.035) Urine Protein (NEGATIVE) mg/dL Urine Glucose (UA) (NEGATIVE) mg/dL Urine Ketones (NEGATIVE) mg/dL Urine Occult Blood (NEGATIVE) Urine Nitrite (NEGATIVE) Urine Bilirubin (NEGATIVE) Urine Urobilinogen (<2.0) EU/dL Ur Leukocyte Esterase (NEGATIVE) Urine RBC (0-2/HPF) Urine WBC (0-5/HPF) Ur Epithelial Cells (NONE-FEW) Urine Bacteria (NEGATIVE) Urine Mucus (NONE-MOD) Urinalysis Comment Urine Opiates Screen NEGATIVE (NEGATIVE) Ur Oxycodone Screen NEGATIVE (NEGATIVE) Urine Methadone Screen NEGATIVE (NEGATIVE) Ur Barbiturates Screen NEGATIVE (NEGATIVE) Ur Phencyclidine Scrn NEGATIVE (NEGATIVE) Ur Amphetamine Screen POSITIVE (NEGATIVE) U Methamphetamines Scrn POSITIVE (NEGATIVE) U Benzodiazepines Scrn NEGATIVE (NEGATIVE) U Cocaine Metab Screen NEGATIVE (NEGATIVE) U Marijuana (THC) Screen POSITIVE (NEGATIVE) Meds: Medications Discontinued Medications Generic Name Dose Route Start Last Admin Trade Name Freq PRN Reason Stop Dose Admin Sodium Chloride 1,000 mls @ 999 mls/hr 01/13/21 19:00 01/13/21 19:23 Normal Saline IV 01/13/21 20:00 999 mls/hr STAT ONE Administration Ketorolac Tromethamine 30 mg 01/13/21 19:07 01/13/21 19:22 Ketorolac 30 Mg/Ml Sdv IVPUSH 01/13/21 19:08 30 mg ONETIME ONE Administration Ondansetron HCl 4 mg 01/13/21 19:00 01/13/21 19:22 Ondansetron 4 Mg/2 Ml Sdv IVPUSH 01/13/21 19:01 4 mg ONETIME ONE Administration Departure - Departure Time of Disposition: 21:15 Disposition: Home, Self-Care 01 Clinical Impression: Gastroenteritis, Polysubstance abuse - Discharge Information Prescriptions: Ondansetron [Zofran ODT] 4 mg PO Q6H PRN #8 tab.dis PRN Reason: Nausea Referrals: PCP,None [Primary Care Provider] - Forms: ED Department Discharge Additional Instructions: The following information is given to patients seen in the emergency department who are being discharged to home. This information is to outline your options for follow-up care. We provide all patients seen in our emergency department with a follow-up referral. The need for follow-up, as well as the timing and circumstances, are variable depending upon the specifics of your emergency department visit. If you don't have a primary care physician on staff, we will provide you with a referral. We always advise you to contact your personal physician following an emergency department visit to inform them of the circumstance of the visit and for follow-up with them and/or the need for any referrals to a consulting specialist. The emergency department will also refer you to a specialist when appropriate. This referral assures that you have the opportunity for follow-up care with a specialist. All of these measure are taken in an effort to provide you with optimal care, which includes your follow-up. Under all circumstances we always encourage you to contact your private physician who remains a resource for coordinating your care. When calling for follow-up care, please make the office aware that this follow-up is from your recent emergency room visit. If for any reason you are refused follow-up, please contact the [facility] Emergency Department at and asked to speak to the emergency department charge nurse. [facility] [address] [place] [address] [place] [address] Thank you for choosing the [facility] emergency department in [place] for your medical needs today. It was a pleasure caring for you. Today you were seen in the emergency department for GI symptoms. 1. You were evaluated today on an emergent basis. Your blood work was normal. Take the Zofran as needed for nausea. Trigg diet, advance as tolerated. 2. You can alternate Tylenol and ibuprofen as needed for pain and fever management. 3. We encourage you to follow up with your primary care provider and/or recommended specialist in the next few days for re-evaluation and further care/management. 4. If your symptoms should worsen, new symptoms develop or any of the signs and symptoms we discussed should arise please return to the emergency room or call 911 (if needed). Sepsis Event Note (ED) - Evaluation Sepsis Screening Result: No Definite Risk - Focused Exam Vital Signs: Vital Signs Temp Pulse Resp BP Pulse Ox 01/13/21 19:01 98.7 F 108 H 16 143/93 H 96 - My Orders Last 24 Hours: My Active Orders 01/13/21 19:33 EKG Documentation Completion [RC] STAT Orthostatic Vital Signs [RC] ASDIRECTED - Assessment/Plan Last 24 Hours: My Active Orders 01/13/21 19:33 EKG Documentation Completion [RC] STAT Orthostatic Vital Signs [RC] ASDIRECTED
--- NOTE | 2021-01-13 19:53 | PCM.EKG ---
#1 Interpretation EKG Date: 01/13/21 Time: 19:50 Rhythm: Other (sinus tachy) Rate (Beats/Min): 107 ST-T: Normal
[2021-01-13 20:20] LABS: BLOOD UREA NITROGEN,BUN 6 mg/dL (7.0-18.0); CARBON DIOXIDE,CO2 23.3 mmol/L (21.0-32.0); CHLORIDE,CL 107 mmol/L (98-107); GLUCOSE RANDOM 98 mg/dL (74-106); LIPASE 87 U/L (73-393); POTASSIUM,K 3.6 mmol/L (3.5-5.1); SODIUM,NA 142 mmol/L (136-148)
== END 2021-01-13 21:30 | disposition home or self-care (01) ==
LOC: MW.ED 18:32
DX: K52.9 Noninfective gastroenteritis and colitis, unspecified (principal); F15.10 Other stimulant abuse, uncomplicated; F12.10 Cannabis abuse, uncomplicated
CPT/HCPCS: 36415; 80053; 80305; 81001; 83690; 85025; 93005; 96374; 96375; 99284; J1885; J2405; J7030

== ENCOUNTER 2021-06-07 13:01 | Emergency (ER) | payer MEDICAID ==
[2021-06-07] MEDS ORDERED: Ketorolac 60 MG/2 ML SDV IM ONE (14:02)
--- NOTE | 2021-06-07 15:11 | CT ---
INDICATION: Left testicle pain, question kidney stone. TECHNIQUE: CT of the abdomen and pelvis without intravenous contrast. Coronal and sagittal reconstructions. COMPARISON: CT of the abdomen and pelvis 03/18/2020. FINDINGS: Mild hepatic steatosis. The unenhanced gallbladder, spleen, pancreas, and adrenal glands are normal in appearance. Splenule. No biliary dilation. No hydronephrosis or ureteral dilation. No obstructing urinary calculi. Mild diffuse bladder wall thickening. The prostate gland is normal in appearance. The unenhanced scrotal contents are unremarkable. No bowel dilation. Negative appendix. No intraperitoneal free air or fluid. Tiny fat containing umbilical hernia. Few mildly prominent portacaval lymph nodes similar to prior exam. These may be reactive. No lymphadenopathy by size criteria. The bones are unremarkable. The lung bases are grossly clear, however evaluation is limited by motion artifact. IMPRESSION: 1. Mild diffuse bladder wall thickening. Correlate with urinalysis. 2. No other acute findings in the abdomen or pelvis on this noncontrast exam. 3. No hydronephrosis or obstructing calculi. 4. Mild hepatic steatosis. Please note that all CT scans at this facility use dose modulation, iterative reconstruction, and/or weight-based dosing when appropriate to reduce radiation dose to as low as reasonably achievable. Dictated by Melissa Mai MD @ 06/07/2021 3:09:38 PM (Electronically Signed)
[2021-06-07 15:20] LABS: BLOOD UREA NITROGEN,BUN 10 mg/dL (7.0-18.0); CARBON DIOXIDE,CO2 23.2 mmol/L (21.0-32.0); CHLORIDE,CL 103 mmol/L (98-107); GLUCOSE RANDOM 100 mg/dL (74-106); LIPASE 88 U/L (73-393); SODIUM,NA 137 mmol/L (136-148)
--- NOTE | 2021-06-07 15:51 | US ---
Indication: Left testicular pain. Technique: Ultrasound of the scrotum and contents. Sonographic weller-scale images were obtained with spectral and color Doppler waveform and spectral waveform analysis of the testicles. Comparison: None. Findings: Bother testicles are normal in size and echotexture. No masses. No suspicious calcifications. Normal arterial and venous color Doppler blood flow and spectral waveforms are present in both testicles. Epididymis: Unremarkable bilaterally. Normal blood flow. Other: No sign of hydrocele. No sign of varicocele. Scrotal wall is normal. Impression: Unremarkable ultrasound of the scrotum and contents. No sign of torsion or inflammation. Dictated by Gary Rothman MD @ 06/07/2021 3:48:56 PM (Electronically Signed)
[2021-06-07] MEDS ORDERED: cefTRIAXone 500 MG in Lidocaine 1% 1 ML IM ONE (17:38)
--- NOTE | 2021-06-07 17:45 | EDM.PDOC ---
ED HPI GENERAL MEDICAL PROBLEM - General Chief Complaint: Genitourinary Problem Stated Complaint: growth on testicle Time Seen by Provider: 06/07/21 13:35 - History of Present Illness INITIAL COMMENTS - FREE TEXT/NARRATIVE: 30-year-old male presents complaining of testicular pain for 2 to 4 months in duration. Patient states has been seen for this before and he is frustrated because he has not had an answer to his symptoms. Patient states that once in a while he has noticed blood in his urine. He was told at one time that he may have a kidney stone. Patient denies any new sexual partners. No yellow-green penile discharge. It does not burn in general when he pees. He is not had urinary tract infections. No vomiting or diarrhea. No fevers. Exacerbating relieving factors. No radiation of his pain testicle Pain Score (Numeric/FACES): 8 - Related Data Allergies Allergy/AdvReac Type Severity Reaction Status Date / Time No Known Allergies Allergy Verified 06/07/21 13:29 Home Meds: Home Meds Doxycycline [Vibramycin] 100 mg PO BID #20 tab 06/07/21 [Rx] Levofloxacin [Levaquin] 500 mg PO DAILY #10 tablet 06/07/21 [Rx] Past Medical History - Past Health History Medical/Surgical History: Denies Medical/Surgical History HEENT History: Reports: None Cardiovascular History: Reports: None Respiratory History: Reports: None Gastrointestinal History: Reports: None, Other (See Below) Other Gastrointestinal History: diverticulitis Genitourinary History: Reports: Renal Calculus Musculoskeletal History: Reports: None Neurological History: Reports: None Psychiatric History: Reports: Anxiety, Depression Endocrine/Metabolic History: Reports: None Hematologic History: Reports: None Immunologic History: Reports: None Oncologic (Cancer) History: Reports: None Dermatologic History: Reports: None - Infectious Disease History Infectious Disease History: Reports: None - Past Surgical History Head Surgeries/Procedures: Reports: None HEENT Surgical History: Reports: None Cardiovascular Surgical History: Reports: None Respiratory Surgical History: Reports: None GI Surgical History: Reports: Colonoscopy Male Surgical History: Reports: None Endocrine Surgical History: Reports: None Neurological Surgical History: Reports: None Musculoskeletal Surgical History: Reports: None Oncologic Surgical History: Reports: None Dermatological Surgical History: Reports: None Social & Family History - Family History Family Medical History: No Pertinent Family History - Tobacco Use Years of Tobacco use: 20 Packs/Tins Daily: 1 - Caffeine Use Caffeine Use: Reports: None - Recreational Drug Use Recreational Drug Use: Yes Recreational Drug Type: Reports: Methamphetamine ED ROS GENERAL - Review of Systems Review Of Systems: Comprehensive ROS is negative, except as noted in HPI. ED EXAM, GENERAL - Physical Exam Exam: See Below Free Text/Narrative:: CONSTITUTIONAL: well appearing in no acute distress SKIN: dry, and intact without rash HENT: Normocephalic, atraumatic, NECK: normal range of motion PULMONARY: normal chest rise and fall, no respiratory distress or stridor GI: Patient's abdomen is soft nontender nondistended no guarding or rebound or rigidity. NEUROLOGIC: normal speech, moves all extremities, grossly non-focal MUSCULOSKELETAL: no gross deformities, atraumatic no flank tenderness : Patient has an area of hypopigmentation to the left testicle but otherwise n ormal in appearance. There is no high riding testicle or abnormal lie. There is no redness swelling or erythema to the testicle or in the perineum. There is no epididymal tenderness. There are no inguinal hernias. There is no penile discharge. PSYCHIATRIC: normal mood and affect Course - Vital Signs Text/Narrative:: Differential diagnosis: STD, UTI, epididymitis, ovarian torsion, kidney stone, hernia, other Patient presents to the emergency department as outlined above. Patient's imaging studies only significant for mild diffuse bladder wall thickening. The patient does not have marked evidence of UTI on urine analysis and he is not complaining of kristy dysuria. Nonetheless as a result patient will be given a trial course of antibiotics to see if this helps with symptoms. He will also be given antibiotics to cover for the possibility of an STD/epididymitis. Otherwise copies of all of his tests were made in order to facilitate follow-up with primary care doctor and the urologist. Patient near the end of the ED course was perseverating over pain medication that he is going to get at home. The patient is looked comfortable his entire stay here in the emergency department and this does bring up at least the consideration that he may be seeking pain medications but up to this point he is only received Toradol and this would be a secondary consideration. Nonetheless patient extensive testing done here which does not show any additional pathology so return precautions with PCP/urology follow-up. Last Recorded V/S: Last Vital Signs Temp 36.2 C 06/07/21 13:26 Pulse 81 06/07/21 13:26 Resp 18 06/07/21 13:26 BP 136/93 H 06/07/21 13:26 Pulse Ox 96 06/07/21 13:26 - Orders/Labs/Meds Orders: Active Orders 24 hr Category Date Time Status Testicular US [Scrotum and Contents] [US] Stat Exams 06/07/21 14:01 Taken CHLAMYDIA AND GONORRHEA BY [facility] Stat Lab 06/07/21 16:24 Received CULTURE URINE [MREF] Stat Lab 06/07/21 17:45 Ordered Labs: Laboratory Tests 06/07/21 06/07/21 06/07/21 Range/Units 14:39 14:39 16:40 WBC 10.03 (4.0-11.0) K/uL RBC 5.46 (4.50-5.90) M/uL Hgb 16.4 (13.0-17.0) g/dL Hct 48.3 (38.0-50.0) % MCV 88.5 (80.0-98.0) fL MCH 30.0 (27.0-32.0) pg MCHC 34.0 (31.0-37.0) g/dL RDW Std Deviation 46.4 (28.0-62.0) fl RDW Coeff of Julissa 15 (11.0-15.0) % Plt Count 168 (150-400) K/uL MPV 13.20 H (7.40-12.00) fL Neut % (Auto) 58.4 (48.0-80.0) % Lymph % (Auto) 23.2 (16.0-40.0) % [place] % (Auto) 12.5 (0.0-15.0) % Eos % (Auto) 4.9 (0.0-7.0) % Baso % (Auto) 1.0 (0.0-1.5) % Neut # (Auto) 5.9 H (1.4-5.7) K/uL Lymph # (Auto) 2.3 (0.6-2.4) K/uL [place] # (Auto) 1.3 H (0.0-0.8) K/uL Eos # (Auto) 0.5 (0.0-0.7) K/uL Baso # (Auto) 0.1 (0.0-0.1) K/uL Nucleated RBC % 0.0 /100WBC Nucleated RBCs # 0 K/uL Sodium 137 (136-148) mmol/L Potassium 4.0 (3.5-5.1) mmol/L Chloride 103 (98-107) mmol/L Carbon Dioxide 23.2 (21.0-32.0) mmol/L BUN 10 (7.0-18.0) mg/dL Creatinine 0.8 (0.8-1.3) mg/dL Est Cr Clr Drug Dosing 149.81 mL/min Estimated GFR (MDRD) > 60.0 ml/min Glucose 100 (74-106) mg/dL Calcium 8.6 (8.5-10.1) mg/dL Total Bilirubin 0.7 (0.2-1.0) mg/dL AST 26 (15-37) IU/L ALT 53 (14-63) IU/L Alkaline Phosphatase 84 (46-116) U/L Total Protein 7.8 (6.4-8.2) g/dL Albumin 4.0 (3.4-5.0) g/dL Globulin 3.8 (2.6-4.0) g/dL Albumin/Globulin Ratio 1.1 (0.9-1.6) Lipase 88 (73-393) U/L Urine Color DARK YELLOW Urine Appearance CLEAR Urine pH 6.0 (5.0-8.0) Ur Specific [place] >= 1.030 (1.001-1.035) Urine Protein NEGATIVE (NEGATIVE) mg/dL Urine Glucose (UA) NEGATIVE (NEGATIVE) mg/dL Urine Ketones NEGATIVE (NEGATIVE) mg/dL Urine Occult Blood TRACE-INTACT H (NEGATIVE) Urine Nitrite NEGATIVE (NEGATIVE) Urine Bilirubin NEGATIVE (NEGATIVE) Urine Urobilinogen 0.2 (<2.0) EU/dL Ur Leukocyte Esterase NEGATIVE (NEGATIVE) Urine RBC 0-2 (0-2/HPF) Urine WBC 0-2 (0-5/HPF) Ur Epithelial Cells OCCASIONAL (NONE-FEW) Urine Bacteria FEW (NEGATIVE) Urine Mucus MODERATE (NONE-MOD) Meds: Medications Discontinued Medications Generic Name Dose Route Start Last Admin Trade Name Freq PRN Reason Stop Dose Admin Ceftriaxone Sodium 500 mg/ 1 mls @ 1 mls/sec 06/07/21 17:38 Lidocaine HCl IM 06/07/21 17:39 ONETIME ONE Ketorolac Tromethamine 60 mg 06/07/21 14:02 06/07/21 14:06 Ketorolac 60 Mg/2 Ml Sdv IM 06/07/21 14:03 60 mg ONETIME ONE Administration Departure - Departure Time of Disposition: 17:39 Disposition: Home, Self-Care 01 Condition: Good Clinical Impression: Testicular pain - Discharge Information Prescriptions: Levofloxacin [Levaquin] 500 mg PO DAILY #10 tablet Doxycycline [Vibramycin] 100 mg PO BID #20 tab Referrals: PCP,None [Primary Care Provider] - Forms: ED Department Discharge Additional Instructions: Take antibiotics as prescribed. Return for increased pain, fever, change or worsening condition. Please follow-up with primary care doctor and urologist as discussed. Information of primary care clinics are below. You can seek urology referral either through your primary care doctor or there are urologists associated with [facility] Sepsis Event Note (ED) - Evaluation Sepsis Screening Result: No Definite Risk - Focused Exam Vital Signs: Vital Signs Temp Pulse Resp BP Pulse Ox 06/07/21 13:26 36.2 C 81 18 136/93 H 96 - My Orders Last 24 Hours: My Active Orders 06/07/21 14:01 Testicular US [Scrotum and Contents] [US] Stat 06/07/21 16:24 CHLAMYDIA AND GONORRHEA BY [facility] Stat 06/07/21 17:45 CULTURE URINE [MREF] Stat - Assessment/Plan Last 24 Hours: My Active Orders 06/07/21 14:01 Testicular US [Scrotum and Contents] [US] Stat 06/07/21 16:24 CHLAMYDIA AND GONORRHEA BY [facility] Stat 06/07/21 17:45 CULTURE URINE [MREF] Stat
[2021-06-11 14:08] LABS: C.TRACHOMATIS BY TMA Negative (Negative); N.GONORRHOEAE BY TMA Negative (Negative)
== END 2021-06-07 18:06 | disposition home or self-care (01) ==
LOC: MW.ED 13:01
DX: N50.812 Left testicular pain (principal); Z72.0 Tobacco use
CPT/HCPCS: 36415; 74176; 76870; 80053; 81001; 83690; 85025; 87086; 87491; 87591; 93976; 96372; 99284; J0696; J1885